=== PATIENT | female | born 1995 | race Caucasian/White ===

== ENCOUNTER 2016-12-26 22:46 | Emergency (ER) | payer OTHER ==
[2016-12-27 00:17] VITALS: BP 96/54
== END 2016-12-27 00:18 | disposition home or self-care (01) ==
LOC: ED 22:46
DX: O26.892 Other specified pregnancy related conditions, second trimester (principal); K04.7 Periapical abscess without sinus; Z3A.21 21 weeks gestation of pregnancy

== ENCOUNTER 2017-09-08 04:49 | Emergency (ER) | payer OTHER ==
[~2017-09-08] VITALS: Ht 154.9 cm; Wt 54.9 kg
[2017-09-08 04:58] VITALS: Ht 154.9 cm; Wt 54.9 kg
[2017-09-08 05:37] VITALS: BP 126/50
== END 2017-09-08 05:37 | disposition home or self-care (01) ==
LOC: ED 04:49
DX: J20.9 Acute bronchitis, unspecified (principal)
CPT/HCPCS: 87804

== ENCOUNTER 2017-09-09 14:54 | Emergency (ER) | payer OTHER ==
[~2017-09-09] VITALS: Ht 154.9 cm; Wt 52.6 kg
[2017-09-09 15:20] VITALS: BP 113/81; Ht 154.9 cm; Wt 52.6 kg
== END 2017-09-09 16:00 | disposition left against medical advice (07) ==
LOC: ED 14:54
DX: Z53.21 Procedure and treatment not carried out due to patient leaving prior to being seen by health care provider (principal)

== ENCOUNTER 2018-05-19 22:57 | Emergency (ER) | payer OTHER ==
[~2018-05-19] VITALS: Ht 154.9 cm; Wt 54.1 kg
[2018-05-19 23:04] VITALS: Ht 154.9 cm; Wt 54.1 kg
[2018-05-20 03:11] VITALS: BP 104/58
== END 2018-05-20 03:45 | disposition home or self-care (01) ==
LOC: ED 22:57
DX: S43.401A Unspecified sprain of right shoulder joint, initial encounter (principal); S09.8XXA Other specified injuries of head, initial encounter; F41.9 Anxiety disorder, unspecified; W22.8XXA Striking against or struck by other objects, initial encounter; Y93.89 Activity, other specified; Y92.89 Other specified places as the place of occurrence of the external cause; Y99.8 Other external cause status
CPT/HCPCS: J1885